=== PATIENT | female | born 1955 | race Caucasian/White ===

== ENCOUNTER 2024-03-10 12:57 | Emergency (ER) | payer OTHER, SELFPAY ==
[2024-03-10 13:11] VITALS: BP 138/92
--- NOTE | 2024-03-10 13:41 | ED.MUSCINJ ---
HPI-Injury
General
Chief Complaint: Fall
Source: patient
Exam Limitations: none
Time Seen by Provider: 03/10/24 13:27
History of Present Illness-Injury
Initial Injury comments:
68-year-old female presents after trip and fall. She tripped over the car stopped in the parking lot and fell forward landing on her right hand hitting her the right side of her face and scraping up her knees. She does not think she lost
consciousness. She does have a headache. She has a history of chronic headaches and essential tremor she has a deep brain stimulator for the tremors. She is not anticoagulated. No other complaints at this time
Phy Exam
Physical Exam
Physical Exam:
General: Well-appearing female no acute respiratory distress
HEENT: Normocephalic pupils equal round reactive to light there is abrasion with some swelling noted to the right side of the face.
Musculoskeletal exam: No significant tenderness over the cervical spine. The right wrist is swollen and tender. Bilateral knees are slightly tender anteriorly with overlying abrasions.
Neurologic exam: Alert and oriented no facial asymmetry
Injury Course
Orders/Labs/Results
Orders:
Orders
03/10/24 13:15
Wrist, Right 3 Views [CR Wrist - Right Min 3 Views] Urgent
Comment:
Reason For Exam: fall
03/10/24 13:40
CT Head W/o Iv Contrast Urgent
Comment:
Reason For Exam: fall
Acetaminophen [Tylenol] 1,000 mg PO NOW STA
MDM/Problems Addressed
Differential Diagnosis Includes:
Mechanical fall after trip. She complains of right wrist pain and headache. Consider right wrist fracture versus dislocation versus sprain. X-rays pending. Will order CT of head given the head strike and headache after the fall with history of
requiring deep brain stimulator.
Tylenol ordered for discomfort
I have personally visualized x-rays of the right wrist which demonstrate nondisplaced transverse fracture of the distal radial metaphysis without associated angulation. There may be a small intra-articular component to this. Volar splint was
applied with cast padding OCL and Quentin bandages.
*Critical Care Note
Total Time (30-74mins, 75-104mins- exclusive of procedures): Not Applicable
Update Note
Update Note:
X-rays of the right wrist were reviewed and demonstrate nondisplaced distal radial fracture. Patient was placed in a volar splint. CT head was reviewed and is also negative. Patient reassured. She was placed in a splint will be advised to
follow-up with orthopedics for further evaluation discharge
ED Attending Note
-
Portions of this chart may have been created with voice recognition software.� Occasional wrong word or��sound alike� substitutions may have occurred due to the inherent limitations of voice recognition software.
Discharge Plan
Departure
Patient Disposition: Home (Routine Discharge)
Date of Disposition: 03/10/24
Time of Disposition: 15:44
Patient with high blood pressure during this ER visit?: No
Discharge Problem:
Distal radial fracture
Instructions: Muscle and bone pain - Discharge instructions
Referrals:
Salvador Edmonds MD [Active] -
Lamont Vick MD [Family Provider] -
Activity Restrictions/Additional Instructions:
Continue with tylenol or ibuprofen for pain. Keep splint on and dry. Follow up with orthopedics for further evaluation
Interventions
Interventions:
*Risk Screen - Suicide Last Done: 03/10/24 13:11
*General Assessment Last Done: 03/10/24 13:11
*Neglect/Abuse Screening Last Done: 03/10/24 13:11
ED- Fall Risk Assessment Last Done: 03/10/24 13:50
*ED COVID-19 Vaccine History Last Done: 03/10/24 13:50
*Nursing Disposition Last Done: 03/10/24 16:20
ED-Musculoskeletal Assessment Last Done: 03/10/24 13:50
ED- Neurological Assessment Last Done: 03/10/24 13:50
ED-Skin Assessment Last Done: 03/10/24 13:50
Discharge Date and Time
Discharge Date/Time: 03/10/24 16:23
Print Language: CZECH
[2024-03-10 14:01] VITALS: BMI 21.3
[2024-03-10] MEDS: TYLENOL 1000 MG PO (14:04)
[2024-03-10 16:00] VITALS: BP 135/80
== END 2024-03-10 16:23 | disposition home or self-care (01) ==
LOC: EMR 12:57
PROVIDERS: EMERGENCY PHYSICIAN Student in an Organized Health Care Education/Training Program; FAMILY PHYSICIAN Internal Medicine
DX: S52.591A Other fractures of lower end of right radius, initial encounter for closed fracture (principal); R51.9 Headache, unspecified; S00.81XA Abrasion of other part of head, initial encounter; S80.212A Abrasion, left knee, initial encounter; S80.211A Abrasion, right knee, initial encounter; W01.0XXA Fall on same level from slipping, tripping and stumbling without subsequent striking against object, initial encounter; Y92.481 Parking lot as the place of occurrence of the external cause; G25.0 Essential tremor; Z88.6 Allergy status to analgesic agent; Z88.1 Allergy status to other antibiotic agents; Z88.5 Allergy status to narcotic agent; Z88.0 Allergy status to penicillin; Z88.8 Allergy status to other drugs, medicaments and biological substances
CPT/HCPCS: 99284; 29125; 70450; 73110